=== PATIENT | female | born 1990 | race Caucasian/White ===

== ENCOUNTER → 2022-12-11 | Outpatient (REF) | LOC: M PLAIMG 13:09 | PROVIDERS: ATTEND Internal Medicine | DX: R06.02 Shortness of breath (principal) ==

== ENCOUNTER → 2023-01-22 | Outpatient (REF) | payer OTHER | LOC: M LAB REF 15:28 | PROVIDERS: ATTEND Physician Assistant | DX: B34.9 Viral infection, unspecified (principal) ==